=== PATIENT | female | born 1965 | race Caucasian/White ===

== ENCOUNTER → 2016-10-29 | Outpatient (CLI) | payer OTHER ==
[~2016-10-29] MED LIST: ACET25TA4 PO; ASPI81TA81 PO; CRANCAP2 PO; HYDR10TA65 PO; LEVO100T5 PO; LOVA20TA PO; MULTCAP13 PO
[2016-10-29 12:18] LABS: FREE T4 1.35 NG/DL (0.76-1.46)
== END ==
LOC: PLAB 07:59
PROVIDERS: ATTEND Family Medicine
DX: E03.9 Hypothyroidism, unspecified (principal); E78.1 Pure hyperglyceridemia
CPT/HCPCS: 36415; 80061; 84439